=== PATIENT | female | born 1985 | race Caucasian/White ===

== ENCOUNTER 2021-09-15 06:36 | Day surgery (SDC) | payer OTHER ==
[2021-09-15] MEDS ORDERED: Sodium Chloride 0.9% 1,000 ML IV SCH (07:00)
[2021-09-15] MEDS ORDERED: fentaNYL 250 MCG/5 ML SDV ONE (07:10)
[2021-09-15] MEDS ORDERED: Scopolamine 1.5 MG Transdermal Patch TOP ONE ×2 (07:26→09:20)
[2021-09-15] MEDS ORDERED: ceFAZolin 2 GM in Premix Bag 1 BAG IV ONE (07:30)
[2021-09-15] MEDS ORDERED: metroNIDAZOLE/Normal Saline 500 MG in Premix Bag 1 BAG IV ONE (07:30)
[2021-09-15] MEDS ORDERED: Bupivacaine 0.5% 50 ML MDV ONE (07:38)
[2021-09-15] MEDS ORDERED: Lidocaine 1% with EPINEPHrine 1:100,000 50 ML MDV ONE (07:38)
[2021-09-15] MEDS ORDERED: Ropivacaine 35 ML, dexAMETHasone 8 MG, EPINEPHrine 0.4 MG, Sodium Chloride 0.9% 42.6 ML NERVRT SCH ×4 (08:05)
[2021-09-15] MEDS ORDERED: fentaNYL 100 MCG/2 ML SDV ONE (08:19)
[2021-09-15] MEDS ORDERED: Propofol 200 MG/20 ML SDV ONE (08:23)
[2021-09-15] MEDS ORDERED: Rocuronium 50 MG/5 ML Vial ONE (08:23)
[2021-09-15] MEDS ORDERED: Neostigmine Methylsulfate 1 MG/ML 5 ML Syringe ONE (08:23)
[2021-09-15] MEDS ORDERED: Dexamethasone 4 MG/ML SDV ONE (08:23)
[2021-09-15] MEDS ORDERED: Ondansetron 4 MG/2 ML SDV ONE (08:23)
[2021-09-15] MEDS ORDERED: Succinylcholine 200 MG/10 ML MDV ONE (08:23)
[2021-09-15] MEDS ORDERED: Glycopyrrolate 0.2 MG/ML 5 ML MDV ONE (08:23)
[2021-09-15] MEDS ORDERED: Ketorolac 30 MG/ML SDV ONE (08:56)
[2021-09-15] MEDS ORDERED: Lactated Ringers 1,000 ML ONE (09:00)
[2021-09-15] MEDS ORDERED: Benzocaine/Cetylpyridinium/Menthol Lozenge MUCMEM PRN (09:20)
[2021-09-15] MEDS ORDERED: Zolpidem 5 MG Tab PO PRN (09:20)
[2021-09-15] MEDS ORDERED: fentaNYL 100 MCG/2 ML SDV IVPUSH PRN ×3 (09:20)
[2021-09-15] MEDS ORDERED: Ondansetron 4 MG/2 ML SDV IVPUSH PRN (09:20)
[2021-09-15] MEDS ORDERED: Docusate Sodium 100 MG Cap PO PRN (09:20)
[2021-09-15] MEDS ORDERED: Acetaminophen/HYDROcodone 325-5 MG Tab PO PRN (09:20)
[2021-09-15] MEDS ORDERED: Ibuprofen 800 MG Tab PO PRN (09:22)
[2021-09-15] MEDS ORDERED: hydrOXYzine HCL 100 MG/2 ML SDV IM ONE (09:22)
[2021-09-15] MEDS ORDERED: oxyCODONE 5 MG Tab PO PRN (09:22)
[2021-09-15] MEDS ORDERED: VERIFY SCOP PATCH TOP SCH (12:00)
[2021-09-15] MEDS ORDERED: hydrOXYzine HCL 100 MG/2 ML SDV IM PRN (13:00)
[2021-09-15 13:32] VITALS: BP 94/57; PULSE 65
== END 2021-09-15 13:25 | disposition home or self-care (01) ==
LOC: JP.SDS 06:36
PROVIDERS: ATTEND Surgery
DX: K80.10 Calculus of gallbladder with chronic cholecystitis without obstruction (principal); J45.20 Mild intermittent asthma, uncomplicated; Z01.812 Encounter for preprocedural laboratory examination; Z20.822 Contact with and (suspected) exposure to COVID-19
CPT/HCPCS: 36415; 80053; 81025; 85027; 88304; A9270-GY; J0171; J0330; J0690; J1100; J1885; J2405; J2704; J2710; J2795; J3010; J3410; J3490; J7030; J7120; U0002